=== PATIENT | female | born 1950 | race Caucasian/White ===

== ENCOUNTER → 2017-01-12 | Outpatient (CLI) | payer MEDICARE ==
--- NOTE | 2017-01-12 11:19 | US ---
EXAM DESCRIPTION: US EXTREMITY MUSCULOSKELETAL CLINICAL HISTORY: 66 y/o F, SKIN MASS COMPARISON: None TECHNIQUE: Ultrasound of the soft tissues adjacent to the right elbow. Grayscale images were saved to the patient's medical record. A single color Doppler image was saved to the medical record. FINDINGS: No abnormality noted within the medial aspect of the right elbow. Normal skeletal muscle and adipose tissue visualized. IMPRESSION: Unremarkable soft tissue ultrasound. Electronically signed by: Imtiaz Jones MD 01/12/2017 11:17
== END | disposition home or self-care (01) ==
LOC: US 09:57
PROVIDERS: ATTEND Family Medicine
DX: R22.9 Localized swelling, mass and lump, unspecified (principal); M25.511 Pain in right shoulder

== ENCOUNTER → 2017-08-13 | Outpatient (CLI) | payer MEDICARE | END | disposition home or self-care (01) | LOC: GMAM 11:21 | PROVIDERS: ATTEND Family Medicine | DX: E21.3 Hyperparathyroidism, unspecified (principal); E53.8 Deficiency of other specified B group vitamins; E55.9 Vitamin D deficiency, unspecified ==

== ENCOUNTER → 2017-12-25 | Outpatient (CLI) | payer MEDICARE | LOC: GMAM 15:13 | PROVIDERS: ATTEND Family Medicine | DX: F31.81 Bipolar II disorder (principal) ==

== ENCOUNTER → 2017-12-28 | Outpatient (CLI) | payer MEDICARE | LOC: GMATM 20:29 | PROVIDERS: ATTEND Nurse Practitioner Family | DX: N30.00 Acute cystitis without hematuria (principal) ==

== ENCOUNTER → 2018-01-02 | Outpatient (CLI) | payer MEDICARE | LOC: GMAM 12:58 | PROVIDERS: ATTEND Family Medicine | DX: D64.9 Anemia, unspecified (principal) ==

== ENCOUNTER → 2018-02-13 | Outpatient (CLI) | payer MEDICARE | LOC: GMAM 10:51 | PROVIDERS: ATTEND Family Medicine | DX: E53.8 Deficiency of other specified B group vitamins (principal) ==

== ENCOUNTER → 2018-03-07 | Outpatient (CLI) | payer MEDICARE | LOC: GMAM 14:40 | PROVIDERS: ATTEND Family Medicine | DX: D64.9 Anemia, unspecified (principal) ==

== ENCOUNTER → 2018-09-04 | Outpatient (CLI) | payer MEDICARE | LOC: GMAM 12:12 | PROVIDERS: ATTEND Family Medicine | DX: E53.8 Deficiency of other specified B group vitamins (principal); E21.3 Hyperparathyroidism, unspecified; E55.9 Vitamin D deficiency, unspecified ==

== ENCOUNTER → 2018-12-05 | Outpatient (CLI) | payer MEDICARE | LOC: GMAM 10:07 | PROVIDERS: ATTEND Family Medicine | DX: E53.8 Deficiency of other specified B group vitamins (principal); R53.83 Other fatigue; E21.3 Hyperparathyroidism, unspecified; E55.9 Vitamin D deficiency, unspecified ==

== ENCOUNTER → 2019-03-24 | Outpatient (CLI) | payer MEDICARE | LOC: GMAM 12:11 | PROVIDERS: ATTEND Family Medicine | DX: E53.8 Deficiency of other specified B group vitamins (principal); E21.3 Hyperparathyroidism, unspecified; E83.52 Hypercalcemia; I10 Essential (primary) hypertension; E55.9 Vitamin D deficiency, unspecified ==

== ENCOUNTER → 2020-08-04 | Outpatient (CLI) | payer MEDICARE | LOC: GMAM 14:38 | PROVIDERS: ATTEND Family Medicine | DX: E53.8 Deficiency of other specified B group vitamins (principal); R53.83 Other fatigue; E55.9 Vitamin D deficiency, unspecified; I10 Essential (primary) hypertension; E78.2 Mixed hyperlipidemia ==

== ENCOUNTER → 2020-08-09 | Outpatient (CLI) | payer MEDICARE ==
--- NOTE | 2020-08-10 11:07 | MRI ---
EXAM DESCRIPTION: Thoracic Spine w/o Contrast: Magnetic Resonance Imaging. CLINICAL HISTORY: PAIN. Low back. Fell 2 weeks ago. Possible T12 fracture. COMPARISON: Radiographs of the lumbar spine and hip on July 29. TECHNIQUE: Multiplanar, multiple standard sequences, non contrast MRI, thoracic spine. FINDINGS: Marrow edema in the mid T12 vertebral body with bright T2 and inversion recovery signal. Fracture line visible in the upper third of the vertebral body. Anterior body cortical offset. Extension into the left pedicle only. Normal marrow signal in the right pedicle and lamina. Decrease in the anterior cortical height approximately 30 percent. Minimal anterior soft tissue edema but no posterior soft tissue edema. Compression or true the right of midline in the left. T11-12 disc desiccation with minimal posterior bulging. No canal or foraminal stenosis. Schmorl's node inferior T11 endplate which demonstrates heterogeneous signal but no definite marrow edema. T12-L1 disc desiccation posterior broad-based bulge not touching the cord. Borderline right foraminal stenosis. Superior T12 endplate Schmorl's node. Anterior disc bulge and endplate reactive changes. Anterior mild endplate reactive changes T10-T11 with disc bulge. Moderate disc space loss with disc desiccation. Posterior broad-based bulge impressing on the thecal sac but not touching the cord. Schmorl's nodes centrally. Circumscribed hyperintense T1 and T2 hemangioma in the T10 vertebral body. Bilateral foraminal narrowing. Disc desiccation and moderate disc space loss T6-T7 and T7-T8 more to the left of midline than the right. Posterior disc bulge. Anterior moderate endplate reactive changes. No canal or foraminal stenosis. Disc desiccation and minimal disc space loss T5-T6 with inferior T5 Schmorl's node. Endplate changes more left of midline. No canal or foraminal stenosis. Remaining discs with Disc spaces preserved. Canal and foramina are patent. Facet joints are unremarkable. Conus terminates at L1-L2. Cord with normal signal, no compression. T6-T11 dextroscoliosis. Paravertebral soft tissues with minimal atrophy. Inhomogeneous marrow signal in the remaining vertebral bodies and the posterior elements. No other vertebral body compression deformities. Cyst posterior upper pole right kidney. Normal size of the adrenal glands. Paraspinal muscle atrophy. IMPRESSION: 1. Compression fracture T12 less than 30 percent. Fracture line in the superior vertebral body with marrow edema extending into the left pedicle only. Posterior elements are stable, including the right pedicle. No posterior soft tissue edema. Borderline right foraminal stenosis at T12-L1. 2. Multiple levels of spondylosis, disc desiccation, disc bulging, canal and foraminal narrowing. Please refer to above FINDINGS for discussion of details.. Electronically signed by: Vipul Scott MD 08/10/2020 11:05 AM CDT
== END ==
LOC: MRI 11:04
PROVIDERS: ATTEND Family Medicine
DX: M48.54XA Collapsed vertebra, not elsewhere classified, thoracic region, initial encounter for fracture (principal); M48.05 Spinal stenosis, thoracolumbar region; M51.34 Other intervertebral disc degeneration, thoracic region; M47.894 Other spondylosis, thoracic region; M51.84 Other intervertebral disc disorders, thoracic region; R60.9 Edema, unspecified